=== PATIENT | female | born 1945 | race Caucasian/White ===

== ENCOUNTER 2020-04-08 16:47 | Inpatient (IN) | payer OTHER, BC ==
[~2020-04-08] VITALS: Ht 167.6 cm; Wt 77.7 kg
--- NOTE | ~2020-04-08 | O ---
[facility] [place] [address] OPERATIVE REPORT Name: FRANCESCA PRATER Room #: 216-P ADM IN M.R.#: [id number] Admission: 04/08/20 Attend Phys: Farida Coffman Discharge: Date of : 47 Report #: [id number] THIS REPORT FOR: cc: FAM - Family physician unknown FAM - Family physician unknown Yonsi Rubin MD ~ CC: CARLOS EDUARDO unknown Farida Coffman Liang [place] DATE OF SERVICE: 04/11/2020 PREOPERATIVE DIAGNOSIS: Acute cholecystitis. POSTOPERATIVE DIAGNOSIS: Acute cholecystitis. OPERATION: Laparoscopic cholecystectomy. SURGEON: Yonis Rubin MD ANESTHESIA: General. ESTIMATED BLOOD LOSS: Minimal. SPECIMEN: Gallbladder. DESCRIPTION OF PROCEDURE: After informed consent was obtained, the patient was brought to the operating room and placed supine. SCDs were placed and working, preoperative antibiotics were administered, general anesthesia was induced. The abdomen was prepped and draped in the usual sterile fashion. A 10 mm incision was made below the umbilicus. Fascia was incised and a trocar was placed. Pneumoperitoneum was established. Three right upper quadrant 5 mm ports were placed. Gallbladder was grasped at the fundus and retracted cephalad. Infundibulum was grasped and retracted laterally. I dissected out the cystic duct and cystic artery as well as the cystic plate. Cystic duct and artery were clipped and ligated leaving one clip on the remaining artery and one clip on the remaining duct. The cystic duct was somewhat enlarged and therefore, I also placed a PDS Endoloop. The gallbladder was then taken off the liver bed with electrocautery. It was placed into an Endopouch and removed. The fascia was then closed with a [id number] 0 Vicryl. Skin was closed with 4-0 Monocryl. Incisions were sealed with Dermabond. COMPLICATIONS: None. [facility] [address] [place] [address] OPERATIVE REPORT Name: FRANCESCA PRATER Room #: 216-P [facility]#: [id number] Admission: 04/08/20 Attend Phys: Farida Coffman Discharge: Date of : 47 Report #: [id number] DISPOSITION: The patient was taken to recovery in satisfactory condition. By: [id number] Yonis Rubin MD /nt
[2020-04-08 16:48] VITALS: BP 98/54
[2020-04-08 17:36] LABS: ABSOLUTE NEUTROPHILS 14.5 thou/uL (1.4-8.2); BASOPHILS 0.3 % (0.0-2.0); EOSINOPHILS 0.3 % (0.0-3.0); HEMOGLOBIN 13.9 gm/dL (12.0-15.0); LYMPHOCYTES 7.1 % (24.0-44.0); MCH 30.8 pg (26.0-34.0); MCHC 34.7 g/dL (28.0-37.0); MCV 88.8 fL (80.0-100.0); MONOCYTES 8.5 % (1.0-8.0); PLATELET COUNT 372 thou/uL (150-400); POLYS 83.8 % (36.0-66.0); RDW 13.7 % (10.5-14.5); WBC 17.3 thou/uL (4.0-11.0)
[2020-04-08 17:43] LABS: CALCIUM 9.1 mg/dL (8.5-10.1); CREATININE 0.9 mg/dL (0.6-1.0)
[2020-04-08 17:50] LABS: ALBUMIN 3.8 g/dL (3.4-5.0); TOTAL BILIRUBIN 0.7 mg/dL (0.2-1.0)
[2020-04-08 18:10] LABS: URINE BILIRUBIN NEGATIVE (Negative); URINE BLOOD 1+ (Negative); URINE CLARITY CLEAR; URINE COLOR YELLOW; URINE GLUCOSE-RANDOM* NEGATIVE (Negative); URINE KETONES NEGATIVE (Negative); URINE LEUKOCYTES-REFLEX TRACE (Negative); URINE NITRITE-REFLEX NEGATIVE (Negative); URINE PROTEIN (DIPSTICK) NEGATIVE (Negative); URINE SPECIFIC GRAVITY 1.015 (1.005-1.035); URINE UROBILINOGEN 0.2 E.U./dl (0.2-1.0)
[2020-04-08 18:25] LABS: BACTERIA-REFLEX 1-9 Few /HPF (None Seen); CASTS None Seen /LPF (None Seen); CRYSTALS None Seen /LPF (None Seen); SQUAMOUS 0-3 Few /LPF (0-3); URINE RBC 0-2 Rare /HPF (0-2); URINE WBC-REFLEX 6-15 Few /HPF (0-5)
--- NOTE | 2020-04-08 18:47 | NUR ---
PT MOVED TO [facility] TO BE CLOSER TO NURSES STATION, PT CONTINUING TO ATTEMPT TO CLIMB OUT OF BED AND TAKE ALL LINES AND TUBING OFF.
[2020-04-08] MEDS ORDERED: RISPERIDONE1 MG PO (21:38)
[2020-04-08] MEDS ORDERED: METOPROLOL SUC100 MG PO (21:38)
[2020-04-08] MEDS ORDERED: SINGULAIR 10 MG10 M1 PO (21:39)
[2020-04-08] MEDS ORDERED: FLUTICASONE PRO16 GM NASAL (21:40)
[2020-04-08] MEDS ORDERED: FIORINAL CAPSUL1 CA1 PO (21:40)
[2020-04-08] MEDS ORDERED: MIRTAZAPINE15 M2 PO (21:40)
[2020-04-08] MEDS ORDERED: LISINOPRIL40 MG PO (21:41)
[2020-04-08] MEDS ORDERED: OLANZAPINE5 MG PO (21:41)
[2020-04-08] MEDS ORDERED: CLARITIN10 MG PO (21:41)
[2020-04-08 22:29] VITALS: BP 163/78
[2020-04-08 23:01] VITALS: BP 157/98
[2020-04-08 23:35] VITALS: BP 173/87
[2020-04-09 00:08] VITALS: BP 137/87
--- NOTE | 2020-04-09 00:55 | NUR ---
PT ADMITTED FROM ED. PT LIVES WITH SIGNIFICANT OTHER AT HOME. PT STATED SHE IS HERE FOR ALLERGIES AND SNIFFLES AND NOT BEING ABLE TO SMELL OR TASTE. PT PRESENTS WITH FEVER. PT HAD CT ABD DONE AND CONCERN RE GALL BLADDER. PT DENIES ANY PAIN. PT ABLE TO STATE NAME AND BIRTHDATE AND SIGNIFICANT OTHERS NAME. PT DOES NOT KNOW MONTH OR NAME OF HOSPITAL. PT PLACED IN SOFT WRIST RESTRAINTS WHILE IN ED, FREQUENT PULLING OFF OF IV AND MONITORS. PT HAS FEMALE EXT CATH PLACED. IVF INTACT. PT IS NPO, BED ALARM ON.
--- NOTE | 2020-04-09 04:20 | NUR ---
PTS PCR IS COVID NEGATIVE. PROVIDER AND FIBER WORKER NOTIFIED.
[2020-04-09 04:42] VITALS: BP 156/77
[2020-04-09 06:15] LABS: HEMATOCRIT 39.8 % (37.0-47.0); HEMOGLOBIN 13.3 gm/dL (12.0-15.0); MCHC 33.5 g/dL (28.0-37.0); MCV 89.4 fL (80.0-100.0); RBC 4.45 mil/uL (4.20-5.00); WBC 15.5 thou/uL (4.0-11.0)
[2020-04-09 06:29] LABS: CALCIUM 8.9 mg/dL (8.5-10.1); MAGNESIUM 1.7 mg/dL (1.8-2.4); POTASSIUM 3.6 mmol/L (3.5-5.1)
--- NOTE | 2020-04-09 07:06 | EKG ---
[facility] [address] [address] ELECTROCARDIOGRAM REPORT Name: FRANCESCA PRATER Room #: 364-P ADM IN M.R.#: [id number] Admission: 04/08/20 Attend Phys: Farida Coffman Discharge: Date of : 47 Report #: [id number] THIS REPORT FOR: cc: FAM - Family physician unknown FAM - Family physician unknown Bird Wiseman MD [facility] ~ THIS REPORT FOR: //name// [facility] ED Test Date: 2020-04-08 Test Time: 17:18:52 Pat Name: FRANCESCA PRATER Department: Room: 364 Gender: F Breast Splitter: [id number] : 1945 Requested By: Elida Alves Order Number: [id number] MD: Bird Wiseman Measurements Intervals [place] Rate: 91 P: 26 MN: 162 QRS: -37 QRSD: 101 T: 29 QT: 400 QTc: 493 Interpretive Statements Sinus rhythm Inferior infarct, old No previous ECG available for comparison Electronically Signed On 04-09-2020 7:06:41 DIRECTOR OF COMPENSATION by Bird Wiseman [email or web address] <ELECTRONICALLY SIGNED> By: Bird Wiseman MD, FACC 04/09/20 0706 17 17 Bird Wiseman MD, [facility] /EPI
--- NOTE | 2020-04-09 09:47 | NUR ---
COVID 19 TEST IN LEFT NARE COMPLETED AT THIS TIME TAKEN TO LAB
--- NOTE | 2020-04-09 10:11 | NUR ---
PT IS IN RESTRAINTS AND PROTOCOL FOLLOWED. PT REMAINS NPO. COVID 19 RESULTS PENDING.
--- NOTE | 2020-04-09 12:55 | NUR ---
INITIAL ASSESSMENT: Received consult for discharge planning. RIDGE reviewed chart and spoke with nursing and attending physician. Pt was admitted from home due to acute respiratory failure/cholecystitis. Surgery consulted. Pt to have lap thomas. Pt is in restraints. Pt placed in Enhanced Isolation to r/o COVID-19. Pt had one negative PCR test. Second test is pending. Pt had a fever and is on IV abx. Not requiring O2. Per chart, pt stated she has lost her sense of taste and smell. Pt with hx of dementia. RIDGE placed call to pt's s/o Doug ([phone]). No answer or option to leave voice message. PT/OT evals ordered and are pending at this time. Psych and [facility]ULIER consulted to evaluate pt. RIDGE is following to assist as needed with discharge planning.
[2020-04-09 21:26] VITALS: BP 161/82
--- NOTE | 2020-04-09 22:43 | NUR ---
ASSUMED CARE OF PT AT 1900HRS. PT AOX1, CONFUSED AND FORGETFUL. FALL PRECAUTION IN PLACE. RESTRAINTS IN PLACE. ASSESSMENT CHARTED. IFF AND ABX CONTINUED. PT IS NPO. PT DENIES PAIN, NAUSEA OR SOA. PT TRANSFERRED TO 218 IN STABLE CONDITION. SIGHIFICANT OTHER NOTIFIED OF TRANSFER.
[2020-04-10 05:22] VITALS: BP 172/69
--- NOTE | 2020-04-10 06:29 | NUR ---
ASSUME CARE 1900. PT/VITALS STABLE. A/O TO PERSON ONLY. EPISODES OF CONFUSION NOTED. PT EASILY REORIENTED. NO RESTRAINST RENEWED. PT RESTARTED ON HER ANTIPSYCHOTIC MEDS. DOES WELL WITH REDIRECTION. VITALS STABLE. HR UP TO 120s WITH EXERTION BUT CONTROLLED WITH REST. BP SOMETIMES RUN HIGH. PROGRESSING MODERATELY WITH POC. PLAN IS TO CONTINUE WITH ABX THERAPY AND CONTINUE TO MONITOR LOC. WILL CONTINUE TO FOLLOW WITH POC
[2020-04-10 07:00] VITALS: BP 142/76
[2020-04-10 07:30] VITALS: BP 142/76
[2020-04-10 08:32] LABS: HEMATOCRIT 36.7 % (37.0-47.0); HEMOGLOBIN 12.5 gm/dL (12.0-15.0); MCH 30.3 pg (26.0-34.0); MCV 89.3 fL (80.0-100.0); RBC 4.11 mil/uL (4.20-5.00); WBC 13.8 thou/uL (4.0-11.0)
[2020-04-10 08:59] LABS: ALBUMIN 2.9 g/dL (3.4-5.0); CALCIUM 8.4 mg/dL (8.5-10.1); CREATININE 0.9 mg/dL (0.6-1.0); MAGNESIUM 1.7 mg/dL (1.8-2.4); POTASSIUM 3.1 mmol/L (3.5-5.1); TOTAL BILIRUBIN 1.5 mg/dL (0.2-1.0); TOTAL PROTEIN 6.4 g/dL (6.4-8.2)
[2020-04-10 11:30] VITALS: BP 159/79
[2020-04-10 15:45] VITALS: BP 151/73
--- NOTE | 2020-04-10 18:41 | NUR ---
PT THREW LEGS OVER SIDE OF BED A HANDFUL OF TIMES THIS AM, BED ALARM SOUNDED EACH TIME AND PT WAS STOPPED BEFORE SHE COULD PULL HERSELF OUT. PT WAS ABLE TO COMPLETELY STAND UP WHILE NO ONE WAS IN THE ROOM, SHE PULLED OUT HER IV, WAS VERY WEAK, CINDY, MAXI, AND I HELPED HER SIT BACK IN BED, SHE YELLED, "I'VE GOT TO GET OUT OF THIS HELL HOLE!" HER BOYFRIEND CAME TO SIT WITH HER AND HELPED KEEP HER CALM EACH TIME SHE TRIED TO CLIMB OUT OF BED. PT TRANSFERRED TO [facility] TO BE CLOSER TO NURSES STATION. SITTER ORDERED BY LORA. CINDY GERMAN HELPED
[2020-04-10 19:02] VITALS: BP 124/50
[2020-04-11] VITALS (7 sets, daily range): BP systolic 132–181; BP diastolic 75–109
--- NOTE | 2020-04-11 08:10 | NUR ---
ASSUMED CARE OF PATIENT AT 1900; ALERT/ORIENTED TO PERSON, CONFUSED, FORGETFUL, AND IMPULSIVE MANAGED WITH MEDICATIONS AND THERAPEUTIC COMMUNICATION; SITTER PRESENT AT THE BEDSIDE THROUGHOUT THE NOC; SR/ST ON THE MONITOR; INCONTINENT OF URINE/USES BEDPAN; PLAN IS TO UNDERGO LAP PEÑA PROCEDURE TODAY; WILL CONTINUE TO MONITOR
[2020-04-11 08:57] LABS: HEMATOCRIT 35.3 % (37.0-47.0); HEMOGLOBIN 11.9 gm/dL (12.0-15.0); MCH 30.4 pg (26.0-34.0); MCHC 33.8 g/dL (28.0-37.0); MCV 89.9 fL (80.0-100.0); RBC 3.93 mil/uL (4.20-5.00); RDW 13.9 % (10.5-14.5)
[2020-04-11 09:24] LABS: CALCIUM 8.2 mg/dL (8.5-10.1); CREATININE 0.8 mg/dL (0.6-1.0); POTASSIUM 3.1 mmol/L (3.5-5.1)
--- NOTE | 2020-04-11 11:24 | NUR ---
Case discussed with the care team. Covid neg and tx to CCU. Pt having lap thomas today. Sitter in place over night due to increased confusion and aggitation. PT/OT to be reordered postop. CM to reassess for dc planning needs postop as well. Pt is from home with sign other. HH/snf referrals may be needed.
--- NOTE | 2020-04-11 20:01 | NUR ---
ASSUMMED PT CARE AT APPROXIMATELY 0700. PT A&0 X1, CONFUSED AND FORGETFUL AT TIMES. ASSESSMENT CHARTED. FALL PRECAUTIONS IN PLACE. PT DENIES HAVING CHEST PAIN. PT DENIES HAVING SOB. PT DENIES HAVING ACUTE PAIN. VITAL SIGNS STABLE. INFORMED PT AND PT'S SPOUSE OF POC. PT'S SPOUSE STATED UNDERSTANDING AND DENIED HAVING FURTHER QUESTIONS. PT POST LAP-JERAD. SITES X4 C/D/I. PT COMFORTABLE IN BED. PT DENIES HAVING FURTHER CONCERNS.
[2020-04-12 05:05] LABS: CALCIUM 8.4 mg/dL (8.5-10.1); CREATININE 0.9 mg/dL (0.6-1.0); POTASSIUM 3.5 mmol/L (3.5-5.1)
[2020-04-12 05:13] LABS: HEMOGLOBIN 11.4 gm/dL (12.0-15.0); MCH 30.6 pg (26.0-34.0); MCHC 33.6 g/dL (28.0-37.0); MCV 91.1 fL (80.0-100.0); RBC 3.73 mil/uL (4.20-5.00); RDW 14.5 % (10.5-14.5); WBC 12.7 thou/uL (4.0-11.0)
[2020-04-12 05:21] VITALS: BP 173/97
--- NOTE | 2020-04-12 08:00 | NUR ---
ASSUMED CARE OF THE PATIENT AT 1900; ALERT AND ORIENTED TO SELF, CONFUSED, RESTLESS, AND COMBATIVE AT TIMES THROUGHOUT THE NOC; DID NOT SLEEP THROUGHOUT THE NOC; WEAK/REQUIRES 2-PERSON ASSIST TO TOILET; SR/ST ON THE MONITOR; POST-LAP PEÑA WITH 4 BANDAID SITES C/D/I; PLAN IS TO D/C TO HOME TODAY WITH RX MEDICATIONS IF OK'D BY CONSULTS; WILL CONTINUE TO MONITOR.
--- NOTE | 2020-04-12 14:37 | NUR ---
PROFOUNDLY CONFUSED. VISUAL HALLUCINATIONS NOTED. CAN BE PHYSICALLY AND VERBALLY ABUSIVE. ALTERNATELY INCONTINENT, VOIDING PER BSC, FEMALE EXTERNAL CATHETER. LAP SITES X4 ABD INTACT. ST PER TELE. SITTER AT BEDSIDE.
[2020-04-12 16:57] VITALS: BP 150/85
[2020-04-12 19:28] VITALS: BP 147/94
--- NOTE | 2020-04-13 04:58 | NUR ---
ASSUMED CARE OF PT AT 1900HRS. PT AOX1 AND IS CONFUSED. FALL PRECAUTION IN PLACE. SITTER AT BEDSIDE. PT WAS AGITATED/IMPULSIVE; PRN MED GIVEN. ABX TREATMENT CONTINUED. 4X LAP SITE ARE C/D/I. PT RUNS SR/ST ON TELE. PT WAS ABLE TO GET COMFORTABLE AND SLEEP PART OF THE SHIFT. VSS AND NO S/S OF ACUTE DISTRESS. WILL CONTINUE TO MONITOR.
[2020-04-13 05:41] VITALS: BP 153/84
[2020-04-13 08:57] VITALS: BP 156/84
[2020-04-13 13:10] VITALS: BP 123/68
[2020-04-13 16:00] VITALS: BP 123/81
--- NOTE | 2020-04-13 17:33 | NUR ---
ASSUMMED PT CARE AT APPROXIMATELY 0700. PT A&0 X 2. FREQUENT REORIENTATION PROVIDED. ASSESSMENT CHARTED. FALL PRECAUTIONS IN PLACE. PT DENIES HAVING CHEST PAIN. PT DENIES HAVING SOB. PT STATED SHE HAD A HEADACHE. PT RECEIVED ANALGESICS. PT STATED ANALGESICS HELPED RELIEVE HEADACHE. EDUCATED PT AND PT'S FAMILY ABOUT POC. PT'S FAMILY STATED UNDERSTANDING AND DENIED HAVING FURTHER QUESTIONS. VITAL SIGNS STABLE. PT AMBULATES STEADY C WALKER AND STANDBY. PT COMFORTABLE. PT DENIES HAVING FURTHER CONCERNS.
[2020-04-13 18:44] VITALS: BP 151/82
[2020-04-14] VITALS (9 sets, daily range): BP systolic 119–179; BP diastolic 58–114
--- NOTE | 2020-04-14 04:36 | NUR ---
PATIENT AOX1 FORGETFUL AND CONFUSED. PATIENT IMPULSIVE AND HARD TO REDIRECT. NEW ORDER OF HALDOL. PATIENT HAS 4 LAP SITE BANDID ARE C/D/I. NO SOA OR DISTRESS NOTED THIS SHIFT.FALL PRECAUTION IN PLACE. PATIENT IN BED ASLEEP AT THIS TIME BREATHING REGULAR AND UNLABOURED.
--- NOTE | 2020-04-14 15:42 | NUR ---
Met with patient and spouse. Patient resides at home with s/o. She has back pain that requires her to furniture walk at home. She does not use a walker. Discussed post acute care for therapy. Patient does not want to discharge to a facility. She is stable to fl today. S/O reports she will often change her mind regarding plans. She is agreeable to home with home health care. No preference for care. PCP Dr Azucena Phillips from [facility]. fl business planner to fax referral and orders to [facility] care. Gave medicare skilled list to review. Patient to fl home today. Issued walker as well.
--- NOTE | 2020-04-14 16:02 | NUR ---
FAXED REFERRAL TO [facility] HH SPOKE WITH NERY IN INTAKE THEY CAN ACCEPT PT AT [place].
[2020-04-14] MEDS ORDERED: VITAMIN B-12500 MCG PO (18:36)
[2020-04-14] MEDS ORDERED: AUGMENTIN 875-1 EACH PO (18:38)
--- NOTE | 2020-04-14 19:17 | NUR ---
PT CARE ASSUMED AT 0700. ASSESSMENTS CHARTED. MEDICATION CHARTED. RW IV. DEMENTIA. IMPULSIVE. FORGETFUL. WALKER. TOILET. PT DISCHARGED TO HOME WITH HH. TELEMETRY D/C'D. IV D.C'D. DISCHARGE PAPERWORK SIGNED.
--- NOTE | 2020-04-16 13:08 | PATH ---
[facility] [address] [place] [address] PATHOLOGY RPT PROCEDURE Name: FRANCESCA PRATER Silvino Room #: 216-P DIS IN M.R.#: [id number] Admission: 04/08/20 Date of : 47 Discharge: 04/14/20 Report #: [id number] Path Case #: [id number] [facility] Accession Number: [id number] . 01 Material submitted: . gallbladder - GALLBLADDER . 01 Clinician provided ICD-10: K81.9 J96.01 . 02 Diagnosis: Gallbladder, excision: - Acute necrotizing cholecystitis, with areas of reactive gastric foveolar metaplasia of the mucosa; negative for malignancy. (MLK:rich; 04/15/2020) QMS 04/16/2020 1238 Local . 02 Electronically signed: . Diana Tripp MD, Pathologist NPI- [id number] . 01 Gross description: . Received in formalin labeled "Francesca Prater, gallbladder" is an intact cholecystectomy specimen measuring 10.7 x 4.2 x 3.3 cm. The serosa is red-purple and focally hemorrhagic and the specimen is opened to reveal green-brown ragged mucosa with possible purulent exudate. The mucosa is without polyps or masses. The average wall thickness is 0.7 cm. Calculi are not identified within the gallbladder or container. Bridge Operator sections of the fundus and body and the cystic duct margin are submitted in A1. ([facility]; 04/13/2020) [facility] 04/13/2020 1131 Local . 02 Pathologist provided ICD-10: K81.9, J96.01 . 02 CPT . 425095 Specimen Comment: A courtesy copy of this report has been sent to [phone] Specimen Comment: [phone] Specimen Comment: Report sent to / DR LEMOS Performed at: [address] [facility] [id number] MD Edson Lucio MD Phone: [phone] Performed at: [address] [address] PATHOLOGY RPT PROCEDURE Name: FRANCESCA PRATER Room #: 216-P DIS IN M.R.#: [id number] Admission: 04/08/20 Date of : 47 Discharge: 04/14/20 Report #: [id number] Path Case #: [id number] [facility] [address], [place], [place] [id number] MD Raysa Contreras MD Phone: [phone]
== END 2020-04-14 20:25 | disposition home health service (06) | DRG 853 ==
LOC: ER 16:47 → EROBS 19:28 → 3W 19:28 → 2N 19:28 → 3W 23:05 → 2N 04-09 21:34
PROVIDERS: Internal Medicine; Nurse Practitioner Family; Physician Assistant; Surgery; ADMIT Hospitalist; ATTEND Hospitalist
PROC: 0FT44ZZ Resection of Gallbladder, Percutaneous Endoscopic Approach (ICD-10-PCS; principal; 2020-04-11)
DX: A41.9 Sepsis, unspecified organism (principal); J96.01 Acute respiratory failure with hypoxia; G92 Toxic encephalopathy; E44.0 Moderate protein-calorie malnutrition; K81.0 Acute cholecystitis; I10 Essential (primary) hypertension; F41.9 Anxiety disorder, unspecified; F32.9 Major depressive disorder, single episode, unspecified; M19.90 Unspecified osteoarthritis, unspecified site; K58.9 Irritable bowel syndrome, unspecified; F03.90 Unspecified dementia, unspecified severity, without behavioral disturbance, psychotic disturbance, mood disturbance, and anxiety; G43.909 Migraine, unspecified, not intractable, without status migrainosus; N83.8 Other noninflammatory disorders of ovary, fallopian tube and broad ligament; F39 Unspecified mood [affective] disorder; E87.6 Hypokalemia; E83.42 Hypomagnesemia; F25.9 Schizoaffective disorder, unspecified; D69.6 Thrombocytopenia, unspecified; R53.81 Other malaise; K57.30 Diverticulosis of large intestine without perforation or abscess without bleeding; E53.8 Deficiency of other specified B group vitamins; M54.5 Low back pain; R63.4 Abnormal weight loss; Z20.828 Contact with and (suspected) exposure to other viral communicable diseases; Z68.27 Body mass index [BMI] 27.0-27.9, adult; Z88.8 Allergy status to other drugs, medicaments and biological substances; Z88.2 Allergy status to sulfonamides; Z28.21 Immunization not carried out because of patient refusal
CPT/HCPCS: 10081; 10879; 50101; 50411; 50445; 50555; 51297; 51489; 52265; 52266; 53307; 53312; 53314; 55245; 56462; 56525; 56526; 62110; 62900; 70005